=== PATIENT | male | born 1960 | race African-American/Black ===

== ENCOUNTER 2020-09-24 22:56 | Emergency (ER) | payer OTHER, BC ==
[2020-09-24 23:07] VITALS: BP 144/94; PULSE 77; TEMP 98.2; BMI 29.1
== END 2020-09-25 00:18 | disposition home or self-care (01) ==
LOC: FER 22:56
DX: S93.401A Sprain of unspecified ligament of right ankle, initial encounter (principal); S80.01XA Contusion of right knee, initial encounter; W17.89XA Other fall from one level to another, initial encounter; Y35.91XA Legal intervention, means unspecified, law enforcement official injured, initial encounter; Y93.02 Activity, running
CPT/HCPCS: 73560-TC-RT-FY; 73610-TC-RT-FY; 99284-25

== ENCOUNTER 2022-06-23 03:05 | Emergency (ER) | payer BC ==
[2022-06-23] MEDS ORDERED: AMOX TR/POT CLAV 875MG/125MG TABLETS (FP) PO ONE (03:12)
[2022-06-23] MEDS ORDERED: DIPHTH,PERTUSS(ACELL),TET 0.5 ML DISP.SYRIN IM ONE ×2 (03:12→03:24)
[2022-06-23 03:14] VITALS: BP 150/98; PULSE 88; RESP 18; TEMP 98.4; BMI 23.7
[2022-06-23] MEDS ORDERED: AMOX TR/POT CLAV 875MG/125MG TABLETS (FP) ONE (03:20)
== END 2022-06-23 03:55 | disposition home or self-care (01) ==
LOC: FER 03:05
PROC: 3E0234Z Introduction of Serum, Toxoid and Vaccine into Muscle, Percutaneous Approach (ICD-10-PCS; principal; 2022-06-23)
DX: S61.451A Open bite of right hand, initial encounter (principal); S61.452A Open bite of left hand, initial encounter; Y04.1XXA Assault by human bite, initial encounter
CPT/HCPCS: 90715; 99283-25

== ENCOUNTER 2022-08-24 03:07 | Emergency (ER) | payer BC ==
[2022-08-24] MEDS ORDERED: AMOX TR/POT CLAV 875MG/125MG TABLETS (FP) PO ONE (03:16)
[2022-08-24] MEDS ORDERED: AMOX TR/POT CLAV 875MG/125MG TABLETS (FP) ONE (03:17)
[2022-08-24 03:24] VITALS: BP 137/88; PULSE 76; RESP 16; TEMP 99; BMI 25.0
== END 2022-08-24 04:22 | disposition home or self-care (01) ==
LOC: FER 03:07
DX: S51.851A Open bite of right forearm, initial encounter (principal); S51.852A Open bite of left forearm, initial encounter; W50.3XXA Accidental bite by another person, initial encounter
CPT/HCPCS: 73140-TC-LT-FY; 73140-TC-RT-FY; 99284-25

== ENCOUNTER 2022-09-10 22:11 | Emergency (ER) | payer BC ==
[2022-09-10 22:25] VITALS: BP 120/67; PULSE 89; RESP 18; TEMP 98.8; BMI 25.1
[2022-09-10] MEDS ORDERED: AMOX TR/POT CLAV 875MG/125MG TABLETS (FP) PO ONE (22:57)
[2022-09-10] MEDS ORDERED: AMOX TR/POT CLAV 875MG/125MG TABLETS (FP) ONE (22:59)
== END 2022-09-10 23:25 | disposition home or self-care (01) ==
LOC: FER 22:11
DX: S01.85XA Open bite of other part of head, initial encounter (principal); Y04.1XXA Assault by human bite, initial encounter
CPT/HCPCS: 99283-25

== ENCOUNTER 2023-07-01 01:07 | Emergency (ER) | payer BC ==
[2023-07-01 01:13] VITALS: BP 151/96; PULSE 100; RESP 18; TEMP 98.2; BMI 25.1
[2023-07-01] MEDS ORDERED: AMOX TR/POT CLAV 500MG/125MG TABLETS (FP) ONE (01:55)
[2023-07-01] MEDS ORDERED: ACETAMINOPHEN 500 MG TABLET (FP) ONE (01:55)
[2023-07-01] MEDS: ACETAMINOPHEN 500 MG TABLET (FP) PO ONE (01:57)
[2023-07-01] MEDS: AMOX TR/POT CLAV 500MG/125MG TABLETS (FP) PO ONE (01:57)
== END 2023-07-01 02:53 | disposition home or self-care (01) ==
LOC: FER 01:07
DX: S81.851A Open bite, right lower leg, initial encounter (principal); S61.452A Open bite of left hand, initial encounter; Y04.1XXA Assault by human bite, initial encounter
CPT/HCPCS: 73090-TC-RT-FY; 73110-TC-RT-FY; 73130-TC-RT-FY; 99283-25

== ENCOUNTER 2024-01-13 22:19 | Emergency (ER) | payer OTHER, BC ==
[2024-01-13 22:24] VITALS: BP 152/98; PULSE 89; RESP 18; TEMP 97.2; BMI 26.4
[2024-01-14] MEDS ORDERED: CYCLOBENZAPRINE HCL 5 MG TABLET ONE (00:41)
[2024-01-14] MEDS ORDERED: IBUPROFEN 600 MG TABLET (FP) PO ONE (00:41)
[2024-01-14] MEDS: IBUPROFEN 600 MG TABLET (FP) PO ONE (00:56)
[2024-01-14] MEDS: CYCLOBENZAPRINE HCL 5 MG TABLET PO STA (00:56)
[2024-01-14] MEDS ORDERED: CYCLOBENZAPRINE HCL 5 MG TABLET PO SCH (10:00)
== END 2024-01-14 01:05 | disposition home or self-care (01) ==
LOC: FER 22:19
DX: S16.1XXA Strain of muscle, fascia and tendon at neck level, initial encounter (principal); S39.012A Strain of muscle, fascia and tendon of lower back, initial encounter; V49.40XA Driver injured in collision with unspecified motor vehicles in traffic accident, initial encounter; Y92.410 Unspecified street and highway as the place of occurrence of the external cause
CPT/HCPCS: 72050-TC-FY; 72070-TC-FY; 99283-25

== ENCOUNTER 2024-07-11 11:27 | Emergency (ER) | payer BC ==
[2024-07-11 11:37] VITALS: BP 154/86; PULSE 73; RESP 18; TEMP 98.1; BMI 27.1
[2024-07-11] MEDS ORDERED: AMOX TR/POT CLAV 875MG/125MG TABLETS (FP) ONE (11:53)
[2024-07-11] MEDS: AMOX TR/POT CLAV 875MG/125MG TABLETS (FP) PO ONE (11:56)
== END 2024-07-11 11:57 | disposition home or self-care (01) ==
LOC: FER 11:27
DX: S61.451A Open bite of right hand, initial encounter (principal); S61.452A Open bite of left hand, initial encounter; W50.3XXA Accidental bite by another person, initial encounter
CPT/HCPCS: 99283-25